=== PATIENT | male | born 1980 | race African-American/Black ===

== ENCOUNTER 2017-08-17 13:20 | Emergency (ER) | payer SELFPAY ==
[~2017-08-17] VITALS: Ht 185.4 cm; Wt 113.4 kg
[~2017-08-17 13:20] MED LIST: AMOXICILLIN500 MG OR; CORTAID1 % EX; FLEXERIL PO; NAPROSYN500 MG OR; NAPROSYN500 MG PO; NORVASC PO; VALTREX1 GM OR
[2017-08-17 14:19] LABS: INFLUENZA A NONE DETECTED (NONE DETECT); INFLUENZA B NONE DETECTED (NONE DETECT)
[2017-08-17] MEDS ORDERED: PREDNISONE50 MG PO (14:27)
[2017-08-17] MEDS ORDERED: ZPAK PO (14:27)
[2017-08-17] MEDS ORDERED: PROAIR HFA108 MCG/AC PO (14:27)
[2017-08-17 14:35] VITALS: BP 132/82
== END 2017-08-17 14:46 | disposition home or self-care (01) | DRG 153 ==
LOC: ED 13:20
PROVIDERS: Family Medicine
DX: J06.9 Acute upper respiratory infection, unspecified (principal); F17.210 Nicotine dependence, cigarettes, uncomplicated; R05 Cough; R53.1 Weakness